=== PATIENT | male | born 1990 | race Caucasian/White ===

== ENCOUNTER 2019-09-05 02:41 | Emergency (ER) | payer OTHER ==
--- NOTE | 2019-09-05 03:35 | PDOC ---
History of Present Illness <Yohan Alvarez - Last Filed: 09/05/19 08:11> - History of Present Illness Initial Comments: The pt is a 28M w/ no reported PMH who presents for evaluation of 5 days of left ankle pain which is worse today as well as 7 hours of left medial ankle erythema. The pain is achy/sharp, non-radiating, worse with walking/touch, and mildly alleviated by OTC meds. Denies vomiting, diarrhea, previous injury to his ankle, or previous occurrence of these symptoms. 1.5 weeks of fever, resolved 2 days ago PSH: Denies 09/05/19 03:59 <Elfego Guajardo - Last Filed: 09/06/19 06:49> - General Chief Complaint: Pain Stated Complaint: FOOT PAIN Past History <Yohan Alvarez - Last Filed: 09/05/19 08:11> - Immunization History Immunization Up to Date: Yes - Psycho Social/Smoking Cessation Hx Smoking History: Never smoked Hx Alcohol Use: No Substance Use Type: None <Elfego Guajardo - Last Filed: 09/06/19 06:49> - Past Medical History Allergies/Adverse Reactions: Allergies Allergy/AdvReac Type Severity Reaction Status Date / Time No Known Allergies Allergy Verified 09/05/19 03:37 Home Medications: Ambulatory Orders Clindamycin [Cleocin -] 300 mg PO Q6HPO #28 capsule 09/05/19 Review of Systems - Review of Systems Able to Perform ROS?: Yes Comments:: GENERAL/CONSTITUTIONAL: No fever or chills. No weakness HEAD, EYES, EARS, NOSE AND THROAT: No change in vision. No change in hearing. No sore throat CARDIOVASCULAR: No chest pain or shortness of breath RESPIRATORY: Denies cough, hemoptysis GASTROINTESTINAL: No nausea, vomiting, diarrhea or constipation GENITOURINARY: No dysuria, frequency, or change in urination MUSCULOSKELETAL: per HPI SKIN: per HPI NEUROLOGIC: No headache, vertigo, loss of consciousness, or change in strength/ sensation ENDOCRINE: No increased thirst. No abnormal weight change HEMATOLOGIC/LYMPHATIC: No anemia, easy bleeding, or history of blood clots ALLERGIC/IMMUNOLOGIC: No hives or skin allergy 09/05/19 03:35 Is the patient limited Romansh proficient: No <Elfego Guajardo - Last Filed: 09/06/19 06:49> *Physical Exam - Vital Signs Last Vital Signs Temp Pulse Resp BP Pulse Ox 98.5 F 68 18 109/53 L 98 09/05/19 02:48 09/05/19 06:51 09/05/19 06:51 09/05/19 06:51 09/05/19 06:51 <KimYohan - Last Filed: 09/05/19 08:11> - Physical Exam GENERAL: Awake, alert, and oriented to person/place/time, in no acute distress HEAD: No signs of trauma, normoc ephalic, atraumatic EYES: PERRLA, EOMI, sclera anicteric, conjunctiva clear ENT: Hearing grossly normal, nares patent, oropharynx clear without exudates. Moist mucosa LUNGS: No distress, speaks in full sentences, clear to auscultation bilaterally HEART: Regular rate and rhythm, normal S1 and S2, no murmurs appreciated, peripheral pulses normal and equal bilaterally ABDOMEN: Soft, nontender, normoactive bowel sounds. No guarding, no rebound EXTREMITIES: Left medial ankle TTP w/o underlying bony crepitus, ROM intact; b/ l plantar TTP w/o erythema or bony tenderness NEUROLOGICAL: Cranial nerves II through XII grossly intact. Normal speech, no focal sensorimotor deficits SKIN: left medial ankle erythema, blanching, warm, no wound 09/05/19 03:35 <Elfego Guajardo - Last Filed: 09/06/19 06:49> ED Treatment Course - LABORATORY CBC & Chemistry Diagram: 09/05/19 04:14 09/05/19 04:14 - ADDITIONAL ORDERS Additional order review: Laboratory Results 09/05/19 09/05/19 04:14 04:14 Sodium 137 Potassium 4.3 Chloride 106 Carbon Dioxide 27 Anion Gap 5 L BUN 18.5 H Creatinine 1.2 Est GFR (CKD-EPI)AfAm 95.47 Est GFR (CKD-EPI)NonAf 82.38 Random Glucose 162 H Calcium 8.4 L Total Bilirubin 0.2 AST 14 L ALT 23 Alkaline Phosphatase 88 C-Reactive Protein 4.3 H Total Protein 7.4 Albumin 3.3 L 09/05/19 04:14 RBC 3.95 L MCV 91.6 MCHC 33.5 RDW 12.8 MPV 9.7 Neutrophils % 77.4 Lymphocytes % 12.7 Monocytes % 7.1 Eosinophils % 2.5 Basophils % 0.3 - Medications Given in the ED: ED Medications Discontinued Medications Generic Name Dose Route Start Last Admin Trade Name Jerome PRHolly Reason Stop Dose Admin Acetaminophen 975 mg 09/05/19 06:27 09/05/19 06:38 Tylenol - PO 09/05/19 06:28 975 mg ONCE ONE Administration Clindamycin HCl 300 mg 09/05/19 06:28 09/05/19 06:38 Cleocin - PO 09/05/19 06:29 300 mg ONCE ONE Administration Ketorolac Tromethamine 15 mg 09/05/19 03:59 09/05/19 04:16 Toradol Injection - IVPUSH 09/05/19 04:00 15 mg ONCE ONE Administration <Yohan Alvarez - Last Filed: 09/05/19 08:11> - LABORATORY CBC & Chemistry Diagram: 09/05/19 04:14 09/05/19 04:14 <Elfego Guajardo - Last Filed: 09/06/19 06:49> Medical Decision Making - Medical Decision Making The pt is a 28M w/ no reported PMH who presents for evaluation of 5 days of left ankle pain which is worse today as well as 7 hours of left medial ankle erythema. ED Course Leukocytosis noted, pt afebrile No anemia Lytes unremarkable No FELICITAS LFTs unremarkable 09/05/19 05:17 XR w/o obvious pathology Will treat with abx Pt non-toxic appearing, afebrile Plan for D/C w/ PCP/ortho f/u Discharge instructions and return precautions given Patient in agreement and verbalized understanding Dispo: Home 09/05/19 06:29 <Elfego Guajardo - Last Filed: 09/06/19 06:49> Discharge <Yohan Alvarez - Last Filed: 09/05/19 08:11> - Discharge Information Problems reviewed: Yes - Admission No <Elfego Guajardo - Last Filed: 09/06/19 06:49> - Discharge Information Clinical Impression/Diagnosis: Cellulitis Qualifiers: Site of cellulitis: extremity Site of cellulitis of extremity: lower extremity Laterality: left Qualified Code(s): L03.116 - Cellulitis of left lower limb Ankle pain Qualifiers: Chronicity: acute Laterality: left Qualified Code(s): M25.572 - Pain in left ankle and joints of left foot Condition: Stable - Additional Discharge Information Prescriptions: Clindamycin [Cleocin -] 300 mg PO Q6HPO #28 capsule - Follow up/Referral Referrals: Mando Lopez MD [Staff Physician] - Osito Goyal DO [Staff Physician] - Jose Hughes DO [Staff Physician] - [facility] [Provider Group] - Patient Discharge Instructions Patient Printed Discharge Instructions: DI for Cellulitis -- Adult, How To Perform RICE (Rest, Ice, Compress, Elevate) Additional Instructions: You were seen in the Emergency Department for evaluation of left ankle pain. Your xray was negative for obvious fracture. You were treated with Clindamycin for a likely skin infection and a prescription was sent to your pharmacy. Take 4 times a day for 7 days. Follow up with your primary care provider and one of the orthopedic referrals given within 1-2 weeks. For pain you may take Tylenol 650mg every 6 hours and Ibuprofen 600mg every 6-8 hours, alternating them each time. Return to the Emergency Department if you develop fevers, chest pain, trouble breathing, worsening pain, worsening redness, change in sensation, worsening symptoms, or any new/concerning symptoms. Lo vieron en el departamento de emergencias para evaluar el dolor en el tobillo lucila. Kenyon radiografa fue negativa por fractura obvia. Usted recibi tratamiento con clindamicina por katie posible infeccin de la piel y se le envi katie receta a kenyon farmacia. Ursula 4 veces al da rita 7 atnon. Tiffany un seguimiento con kenyon proveedor de atencin primaria y katie de las derivaciones ortopdicas que se brindan dentro de 1-2 semanas. Para el dolor, puede ursula Tylenol 650mg cada 6 horas e Ibuprofen 600mg cada 6- 8 horas, alternando cada vez. Regrese al Departamento de Emergencias si desarrolla fiebre, dolor en el pecho, dificultad para respirar, dolor que empeora, enrojecimiento que empeora, cambios en la sensacin, empeoramiento de los sntomas o cualquier sntoma nuevo o preocupante. Print Language: KAZAKH - Post Discharge Activity Work/Back to School Note: Back to Work
[2019-09-05 03:37] VITALS: TEMP 98.5; BMI 28.2
[2019-09-05] MEDS ORDERED: KETOROLAC TROMETHAMINE 15 MG/ML VIAL IVPUSH ONE (03:59)
[2019-09-05] MEDS ORDERED: KETOROLAC TROMETHAMINE 15 MG/ML VIAL ONE (04:11)
[2019-09-05 04:37] LABS: BASO % 0.3 % (0-2.0); EOS % 2.5 % (0-4.5); HEMATOCRIT 36.2 % (35.4-49); HEMOGLOBIN 12.1 GM/dL (11.7-16.9); LYMPH % 12.7 % (8-40); MCH 30.7 pg (25.7-33.7); MCHC 33.5 g/dl (32.0-35.9); MEAN CELL VOLUME 91.6 fl (80-96); MEAN PLT VOLUME 9.7 fl (7.5-11.1); MONO % 7.1 % (3.8-10.2); NEUT % 77.4 % (42.8-82.8); PLATELET COUNT 251 K/MM3 (134-434); RBC 3.95 M/mm3 (4.00-5.60); RDW 12.8 % (11.9-15.9); WHITE BLOOD COUNT 11.1 K/mm3 (4.0-10.0)
[2019-09-05 05:04] LABS: ALBUMIN 3.3 g/dl (3.4-5.0); BILIRUBIN,TOTAL 0.2 mg/dL (0.2-1); BLOOD UREA NITROGEN 18.5 mg/dL (7-18); CALCIUM 8.4 mg/dL (8.5-10.1); CREATININE 1.2 mg/dL (0.55-1.3); POTASSIUM 4.3 mmol/L (3.5-5.1); TOT PROT 7.4 g/dl (6.4-8.2)
--- NOTE | 2019-09-05 05:41 | PDOC ---
Attending Attestation - Resident Resident Name: DavidElfego anderson - ED Attending Attestation I have performed the following: I have examined & evaluated the patient, The case was reviewed & discussed with the resident, I agree w/resident's findings & plan - HPI HPI: 09/05/19 05:41 Pt comes with left ankle pain and medial ankle erythema = - Physicial Exam PE: 09/10/19 20:22 GENERAL: A+Ox3 HEAD: NCAT EYES: PERRLA, EOMI, sclera anicteric, conjunctiva clear ENT: ENL. Moist mucosa LUNGS: CTA bilaterally HEART: S1 S2 RRR, no murmurs appreciated ABDOMEN: Soft, NT ND No guarding, no rebound EXTREMITIES: Left medial ankle TTP w/o underlying bony crepitus, ROM intact; b/ l plantar TTP w/o erythema or bony tenderness NEUROLOGICAL: Cranial nerves II through XII grossly intact. Normal speech, no focal sensorimotor deficits SKIN: left medial ankle erythema, blanching, warm, no wound - Medical Decision Making 09/10/19 20:20 The pt is a 28M w/ no reported PMH who presents for evaluation of 5 days of left ankle pain which is worse today as well as 7 hours of left medial ankle erythema. Leukocytosis noted, pt afebrile No anemia Lytes unremarkable No FELICITAS LFTs unremarkable XR w/o obvious pathology Will treat with abx for cellulitis Pt non-toxic appearing, afebrile Plan for D/C w/ PCP/ortho f/u
[2019-09-05] MEDS ORDERED: ACETAMINOPHEN 325 MG TABLET (FP) PO ONE (06:27)
[2019-09-05] MEDS ORDERED: CLINDAMYCIN HCL 300 MG CAPSULE PO ONE (06:28)
[2019-09-05] MEDS ORDERED: ACETAMINOPHEN 325 MG TABLET (FP) ONE (06:33)
[2019-09-05] MEDS ORDERED: CLINDAMYCIN HCL 150 MG CAPSULE (FP) ONE (06:34)
[2019-09-05 06:51] VITALS: BP 109/53; PULSE 68
== END 2019-09-05 06:49 | disposition home or self-care (01) ==
LOC: JER 02:41
PROC: 3E0333Z Introduction of Anti-inflammatory into Peripheral Vein, Percutaneous Approach (ICD-10-PCS; principal; 2019-09-05)
DX: L03.116 Cellulitis of left lower limb (principal)
CPT/HCPCS: 36415; 73610-TC-LT-FY; 73630-TC-LT; 80053; 85025; 85651; 86140; 96374; 99283-25

== ENCOUNTER 2019-09-09 10:50 | Emergency (ER) | payer OTHER ==
[2019-09-09 10:58] VITALS: BMI 27.3
[2019-09-09] MEDS ORDERED: KETOROLAC TROMETHAMINE 60 MG/2 ML VIAL IM ONE (11:16)
[2019-09-09] MEDS ORDERED: KETOROLAC TROMETHAMINE 60 MG/2 ML VIAL ONE (11:34)
--- NOTE | 2019-09-09 11:57 | PDOC ---
History of Present Illness - General Chief Complaint: Wound Stated Complaint: PAIN Time Seen by Provider: 09/09/19 11:06 History Source: Patient Exam Limitations: No Limitations - History of Present Illness Initial Comments: 09/09/19 11:54 28-year-old male presents to ED with continual left foot pain. Patient states was seen here a few days ago and started on clindamycin which he has been taking. Patient states the redness and swelling has gone down but the pain continues. Patient states did not take anything for the pain and denies any swelling or recent injury. 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 Is this a multiple visit Asthma Patient?: No Timing/Duration: constant Severity: mild, moderate Associated Symptoms: reports: denies symptoms Past History - Travel Traveled outside of the country in the last 30 days: No Close contact w/someone who was outside of country & ill: No - Past Medical History Allergies/Adverse Reactions: Allergies Allergy/AdvReac Type Severity Reaction Status Date / Time No Known Allergies Allergy Verified 09/09/19 10:58 Home Medications: Ambulatory Orders Clindamycin [Cleocin -] 300 mg PO Q6HPO #28 capsule 09/05/19 COPD: No Diabetes: Yes (PRE-DIABETIC) - Immunization History Immunization Up to Date: Yes - Psycho Social/Smoking Cessation Hx Smoking History: Never smoked Have you smoked in the past 12 months: No Hx Alcohol Use: Yes Drug/Substance Use Hx: No Substance Use Type: None Patient Lives Alone: No Lives with/in: spouse/SO Review of Systems - Review of Systems Able to Perform ROS?: No Is the patient limited Armenian proficient: No Constitutional: No: Symptoms Reported HEENTM: No: Symptoms Reported Respiratory: No: Symptoms reported Cardiac (ROS): No: Symptoms Reported ABD/GI: No: Symptoms Reported : No: Symptoms Reported Musculoskeletal: Yes: Joint Pain, Muscle Pain (left Foot) Integumentary: No: Symptoms Reported Neurological: No: Numbness, Paresthesia, Tingling, Weakness *Physical Exam - Vital Signs Last Vital Signs Temp Pulse Resp BP Pulse Ox 97.6 F 90 16 113/60 98 09/09/19 10:56 09/09/19 10:56 09/09/19 10:56 09/09/19 10:56 09/09/19 10:56 - Physical Exam General Appearance: Yes: Nourished, Appropriately Dressed. No: Apparent Distress Respiratory/Chest: positive: Lungs Clear, Normal Breath Sounds. negative: Respiratory Distress, Accessory Muscle Use Cardiovascular: positive: Regular Rhythm, Regular Rate. negative: Murmur Extremity: positive: Normal Capillary Refill, Normal Inspection, Normal Range of Motion, Tender (Over the medial aspect of left midfoot. No edema no skin discoloration no change in temperature) Integumentary: positive: Normal Color, Warm, Moist Neurologic: positive: Motor Strength 5/5 (Ambulatory) ED Treatment Course - LABORATORY CBC & Chemistry Diagram: 09/09/19 11:25 09/09/19 11:25 - Medications Given in the ED: ED Medications Discontinued Medications Generic Name Dose Route Start Last Admin Trade Name Jerome PRN Reason Stop Dose Admin Ketorolac Tromethamine 60 mg 09/09/19 11:16 09/09/19 11:40 Toradol Injection - IM 09/09/19 11:17 60 mg ONCE ONE Administration Medical Decision Making - Medical Decision Making 09/09/19 11:56 Complaint: Continual left foot pain despite taking clindamycin for treatment of cellulitis Exam: No acute or abnormal findings except for tenderness to the medial aspect of left midfoot. Plan: CBC, comp, uric acid and Toradol IM ordered 09/09/19 13:25 Laboratory Tests 09/09/19 09/09/19 11:25 11:25 WBC 8.6 Hgb 12.8 Hct 37.2 Neutrophils % 72.1 Sodium 136 Potassium 4.4 Chloride 102 Carbon Dioxide 29 Anion Gap 5 L BUN 10.6 Creatinine 0.8 Random Glucose 129 H Uric Acid 3.7 Calcium 8.8 Total Bilirubin 0.4 AST 12 L ALT 31 Alkaline Phosphatase 78 Total Protein 7.8 Albumin 3.3 L Pt states feeling Better. Recommend to take Motrin at this time as this may be related to inflammation Discharge - Discharge Information Problems reviewed: Yes Clinical Impression/Diagnosis: Left foot pain Condition: Improved Disposition: HOME - Follow up/Referral Referrals: Edil Pearson MD [Staff Physician] - - Patient Discharge Instructions Patient Printed Discharge Instructions: DI for Plantar Fasciitis, DI for Foot Pain Additional Instructions: Please take Motrin 600 mg for discomfort every 8 hours. Follow-up with your doctor and orthopedist. - Post Discharge Activity
[2019-09-09 12:34] LABS: BASO % 0.5 % (0-2.0); HEMATOCRIT 37.2 % (35.4-49); HEMOGLOBIN 12.8 GM/dL (11.7-16.9); LYMPH % 17.7 % (8-40); MCH 31.2 pg (25.7-33.7); MCHC 34.3 g/dl (32.0-35.9); MEAN CELL VOLUME 90.9 fl (80-96); MEAN PLT VOLUME 9.2 fl (7.5-11.1); MONO % 6.7 % (3.8-10.2); NEUT % 72.1 % (42.8-82.8); PLATELET COUNT 291 K/MM3 (134-434); RBC 4.09 M/mm3 (4.00-5.60); RDW 12.2 % (11.9-15.9); WHITE BLOOD COUNT 8.6 K/mm3 (4.0-10.0)
[2019-09-09 13:17] LABS: ALBUMIN 3.3 g/dl (3.4-5.0); BILIRUBIN,TOTAL 0.4 mg/dL (0.2-1); BLOOD UREA NITROGEN 10.6 mg/dL (7-18); CALCIUM 8.8 mg/dL (8.5-10.1); CREATININE 0.8 mg/dL (0.55-1.3); POTASSIUM 4.4 mmol/L (3.5-5.1); TOT PROT 7.8 g/dl (6.4-8.2); URIC ACID 3.7 mg/dL (2.6-7.2)
[2019-09-09 13:37] VITALS: BP 122/68; PULSE 86; TEMP 98.5
== END 2019-09-09 13:36 | disposition home or self-care (01) ==
LOC: JER 10:50
PROC: 3E0233Z Introduction of Anti-inflammatory into Muscle, Percutaneous Approach (ICD-10-PCS; principal; 2019-09-09)
DX: M79.672 Pain in left foot (principal); Z87.2 Personal history of diseases of the skin and subcutaneous tissue
CPT/HCPCS: 36415; 80053; 84550; 85025; 99282-25

== ENCOUNTER 2020-08-14 12:48 | Emergency (ER) | payer OTHER ==
[2020-08-14 13:30] VITALS: BP 123/54; PULSE 64; TEMP 98.7; BMI 29.7
== END 2020-08-14 22:10 | disposition home or self-care (01) ==
LOC: JER 12:48
DX: Z03.818 Encounter for observation for suspected exposure to other biological agents ruled out (principal)
CPT/HCPCS: 99283-25; C9803; U0003